=== PATIENT | female | born 1995 | race African-American/Black ===

== ENCOUNTER 2017-09-10 23:10 | Emergency (ER) | payer OTHER ==
[2017-09-10 23:20] VITALS: BP 133/71
--- NOTE | 2017-09-10 23:49 | ER Document Report ---
ED General - General Chief Complaint: Abscess Stated Complaint: SKIN PROBLEM Time Seen by Provider: 09/10/17 23:38 Notes: Patient is a 22-year-old female with a past medical history of presents with pruritic lesions over the bilateral elbows that have been present for the past 24 hours. She states that she woke up with these lesions and believes they may be bug bites. She denies lesions any other location. She denies any nausea, vomiting, shortness of breath, or syncope. No history of similar symptoms in the past. She has not tried any to improve her symptoms. Nothing worsens her symptoms. TRAVEL OUTSIDE OF THE [place] IN LAST 30 DAYS: No Past Medical History - General Information source: Patient - Social History Smoking Status: Never Smoker Frequency of alcohol use: None Drug Abuse: None Lives with: Spouse/Significant other Family History: Reviewed & Not Pertinent Patient has suicidal ideation: No Patient has homicidal ideation: No Renal/ Medical History: Denies: Hx Peritoneal Dialysis - Immunizations Immunizations up to date: Yes Review of Systems - Review of Systems Notes: Constitutional: Negative for fever. HENT: Negative for sore throat. Eyes: Negative for visual changes. Cardiovascular: Negative for chest pain. Respiratory: Negative for shortness of breath. Gastrointestinal: Negative for abdominal pain, vomiting or diarrhea. Genitourinary: Negative for dysuria. Musculoskeletal: Negative for back pain. Skin: Positive for rash. Neurological: Negative for headaches, weakness or numbness. 10 point ROS negative except as marked above and in HPI. Physical Exam - Vital signs Vitals: Temp Pulse Resp BP Pulse Ox 98.7 F 93 18 133/71 H 98 09/10/17 23:11 09/10/17 23:11 09/10/17 23:11 09/10/17 23:11 09/10/17 23:11 Interpretation: Normal Notes: PHYSICAL EXAMINATION: GENERAL: Well-appearing, well-nourished and in no acute distress. HEAD: Atraumatic, normocephalic. EYES: Pupils equal round and reactive to light, extraocular movements intact, sclera anicteric, conjunctiva are normal. ENT: nares patent, oropharynx clear without exudates. Moist mucous membranes. NECK: Normal range of motion, supple without lymphadenopathy LUNGS: Breath sounds clear to auscultation bilaterally and equal. No wheezes rales or rhonchi. HEART: Regular rate and rhythm without murmurs ABDOMEN: Soft, nontender, normoactive bowel sounds. No guarding, no rebound. No masses appreciated. EXTREMITIES: Normal range of motion, no pitting or edema. No cyanosis. NEUROLOGICAL: No focal neurological deficits. Moves all extremities spontaneously and on command. PSYCH: Normal mood, normal affect. SKIN: Warm, Dry, normal turgor, several urticarial lesions over the bilateral olecranon's, there is 1 area on the right elbow that is somewhat swollen but without fluctuance or pain on palpation Course - Re-evaluation Re-evalutation: 09/10/17 23:47 Patient presents with urticarial lesions over the bilateral elbows and in no additional location consistent with a possible contact dermatitis of unclear etiology. The right side is much more swollen but there is no fluctuance and patient denies any significant pain on palpation of the area. I do not suspect an acute abscess. No evidence of an acute cellulitis on exam or by clinical history. Will begin on topical steroids, oral antihistamines, and recommend close outpatient follow-up. At this time will discharge with return precautions and follow-up recommendations. Verbal discharge instructions given a the bedside and opportunity for questions given. Medication warnings reviewed. Patient is in agreement with this plan and has verbalized understanding of return precautions and the need for primary care follow-up in the next 24-72 hours. - Vital Signs Vital signs: Temp Pulse Resp BP Pulse Ox 98.7 F 93 18 133/71 H 98 09/10/17 23:11 09/10/17 23:11 09/10/17 23:11 09/10/17 23:11 09/10/17 23:11 Discharge - Discharge Clinical Impression: Urticaria Contact dermatitis Qualifiers: Contact dermatitis type: irritant Contact dermatitis trigger: unspecified trigger Qualified Code(s): L24.9 - Irritant contact dermatitis, unspecified cause Condition: Good Disposition: HOME, SELF-CARE Additional Instructions: You were seen today for hives. This can be either allergic, autoimmune, or environmental in origin. You can continue to take cetirizine 10mg up to 3 times daily as needed for itching. Apply the topical steroid cream that has been prescribed as needed for severe inching. IF YOU DEVELOP DIFFICULTY BREATHING, SPREADING OF HIVES, VOMITING, LIGHTHEADEDNESS, IMMEDIATELY AND CALL 911. Please follow-up with your primary care physician in the next 1-2 days. Prescriptions: Triamcinolone Acetonide 80 gm TP TID #80 cream.gm.
== END 2017-09-11 00:05 | disposition home or self-care (01) ==
LOC: ER 23:10
DX: L50.9 Urticaria, unspecified (principal); L24.9 Irritant contact dermatitis, unspecified cause
CPT/HCPCS: 99283